=== PATIENT | female | born 1950 | race Asian ===

== ENCOUNTER → 2016-10-16 | Outpatient (CLI) | payer OTHER ==
--- NOTE | ~2016-10-16 | MY6 ---
[facility] A Service of [facility] RADIOLOGY TEXT RESULTS PATIENT: GABRIELE ALEXANDER LOCATION: [facility] : 54 UNIT #: [id number] AGE: [address]: MAGDALENA GOLDSTEIN APRN SEX: F ORDER DR: [id number] [facility] [address] [place], [place] [address] [id number] O MR#: [id number] Acc #: [id number] NAME: GABRIELE ALEXANDER : 1950 SEX: F STUDY DATE/TIME: 10/16/2016 8:44 UNIT: [facility] ROOM: STUDY DESCRIPTION: MY Mammogram Dx Dig Marek Attending Physician: [place] Goldstein Aprn Referring Physician: [place] Goldstein Aprn Ordering Physician: [place] Goldstein Aprn Primary Care Physician: [place] Goldstein Aprn MEDICAL IMAGING REPORT This report is preliminary unless electronic signature is present EXAM Additional views right breast 10/16/2016 INDICATION Indeterminate calcifications in the right breast on the screening study performed 04/19/2015. Additional views were recommended at that time. The patient is now returning for the additional views that were recommended in connection with the screening study. No new problems. TECHNIQUE CC and MLO views of the breasts were obtained bilaterally. Additional magnification CC and true lateral views were obtained on the right. Images were obtained and reviewed with an FDA-approved CAD device. COMPARISON 04/19/2015. FINDINGS The indeterminate microcalcifications in the posterior medial aspect of the right breast do not appear appreciably changed over the past 18 months. Stability favors a benign etiology. There is no associated mass. No associated architectural distortion. Although the calcifications were identified on her baseline study in 2014, stability of the calcifications over 18 months is suggestive of a benign etiology. Suggest the patient undergo a repeat diagnostic mammogram on the right in April 2017 to document 2 years of stability. Should the calcifications show more suspicious features on followup, then stereotactic biopsy would be recommended at that point. Breast parenchyma is otherwise composed of scattered fibroglandular densities. There is no new suspicious nodule or mass in either breast. Intramammary node anterior to the pectoralis muscle on the left stable. STS. [facility] A Service of [facility] & [facility] RADIOLOGY TEXT RESULTS PATIENT: GABRIELE ALEXANDER LOCATION: [facility] : 54 UNIT #: [id number] AGE: [address]: MAGDALENA GOLDSTEIN APRN SEX: F ORDER DR: Findings and recommendations in the case were discussed with the patient through her daughter who served as an predatory game hunter throughout the patient encounter. The patient voiced understanding and agreement. IMPRESSION 1. Probably benign calcifications in the posteromedial right breast given stability over the past 18 months. A unilateral right diagnostic mammogram in April 2017 is recommended to document 2 years of stability. 2. There are otherwise no new findings suspicious for malignancy. Benign calcification in the left breast. Benign intramammary node on the right. Patients over the age of 40 are entered into a reminder system with target due date for the next mammogram. A result letter will also be sent to the patient. BIRADS: 3 Probably benign finding; short interval followup suggested Dictated by... Bernard Rushing M.D. THIS IS AN ELECTRONICALLY VERIFIED REPORT Bernard Rushing M.D. at 10/16/2016 4:14 PM RADHA/fifi TD: 10/16/2016 11:05 JOB #: [id number] MEDICAL IMAGING REPORT COPY
== END | disposition home or self-care (01) ==
LOC: CMAM 07:53
DX: N64.89 Other specified disorders of breast (principal)
CPT/HCPCS: G0204

== ENCOUNTER → 2017-04-23 | Outpatient (CLI) | payer OTHER ==
--- NOTE | ~2017-04-23 | MY25 ---
[facility] A Service of [facility] RADIOLOGY TEXT RESULTS PATIENT: GABRIELE ALEXANDER LOCATION: [facility] : 54 UNIT #: [id number] AGE: [address]: NIKOS CUNNINGHAM APRN SEX: F ORDER DR: [id number] [facility] [address] [place], [place] [address] [id number] O MR#: [id number] Acc #: [id number] NAME: GABRIELE ALEXANDER : 1950 SEX: F STUDY DATE/TIME: 04/23/2017 8:32 UNIT: [facility] ROOM: STUDY DESCRIPTION: NOEMÍ BELGICA ISAACSG W/ CAD UNI RT Attending Physician: Nikos Cunningham Referring Physician: Nikos Cunningham Ordering Physician: Nikos Cunningham Aprn Primary Care Physician: Nikos Cunningham MEDICAL IMAGING REPORT This report is preliminary unless electronic signature is present EXAM Diagnostic right mammogram 04/23 INDICATIONS 6-month followup of probably benign calcifications in the right breast. FINDINGS Magnification CC and ML views of the right breast are compared with 04/19/2015 and 10/16/2016. Parenchyma shows scattered fibroglandular densities. The cluster of calcifications in the medial right breast appears stable from 2014 and benign. Patient should continue with routine yearly mammographic screening. Findings were communicated with the patient at the time of her examination today. IMPRESSION Calcifications in the right breast have been stable since 04/19/2015 and are considered benign. Routine yearly mammographic screening recommended. Patient's over the age of 40 are entered into a reminder system with target due date for the next mammogram. A result letter will be sent to the patient. BIRADS: 2 Benign findings. Dictated by... Kd Tesfaye Jr., M.D. THIS IS AN ELECTRONICALLY VERIFIED REPORT Kd Tesfaye Jr., M.D. at 04/23/2017 4:39 PM RLK/to TD: 04/23/2017 15:20 [facility] A Service of [facility] RADIOLOGY TEXT RESULTS PATIENT: GABRIELE ALEXANDER LOCATION: [facility] : 54 UNIT #: [id number] AGE: [address]: NIKOS CUNNINGHAM APRN SEX: F ORDER DR: CORY #: [id number] MEDICAL IMAGING REPORT Page 1 of 1 COPY
== END | disposition home or self-care (01) ==
LOC: CMAM 07:49
DX: R92.8 Other abnormal and inconclusive findings on diagnostic imaging of breast (principal); R92.1 Mammographic calcification found on diagnostic imaging of breast
CPT/HCPCS: G0206